=== PATIENT | male | born 1955 | race Caucasian/White ===

== ENCOUNTER → 2020-05-24 14:23 | Outpatient (BNVA) | payer MEDICARE, SELFPAY | PROVIDERS: Family Provider Internal Medicine; PCP Family Medicine; Visit Provider Nurse Practitioner Family | DX: Z20.828 Contact with and (suspected) exposure to other viral communicable diseases (principal) | CPT/HCPCS: 87635 ==

== ENCOUNTER 2020-05-28 16:33 | Emergency (ER) | payer MEDICARE, SELFPAY ==
[2020-05-28 16:44] VITALS: BP 172/89; PULSE 101; RESP 18; TEMP 38.3; O2SAT 93; BMI 26.9
--- NOTE | 2020-05-28 16:53 | XRR_ITS ---
PROCEDURE INFORMATION: Exam: XR Chest, 1 View Exam date and time: 05/28/2020 4:54 PM Age: 64 years old Clinical indication: Shortness of breath; Additional info: SOB TECHNIQUE: Imaging protocol: XR of the chest Views: 1 view. COMPARISON: DX [facility] [place] Chest 2 views 09/17/2017 10:16 AM FINDINGS: Lungs: No visible active interstitial or alveolar airspace disease. Evidence of antecedent granulomatous disease. Pleural space: Unremarkable. No pleural effusion. No pneumothorax. Heart/Mediastinum: Cardiac structures and configuration with arteriosclerosis. Bones/joints: Unremarkable. XR/XR chest 1V portable [id number] IMPRESSION: Nonacute.
[2020-05-28 17:14] VITALS: O2SAT 91
--- NOTE | 2020-05-28 17:21 | W.ED.COVID ---
HPI - COVID General: Chief Complaint: COVID symptoms Stated Complaint: covid +/trouble breathing Time Seen by Provider: 05/28/20 16:53 Source: patient Mode of arrival: ambulatory Limitations: no limitations Triage information: Has fever, cough or shortness of breath. Exposure to COVID + person last 14 days History of Present Illness: HPI Narrative: 64-year-old male who has had Covid for 1 week. He states that over last 2 days he has had some increasing shortness of breath and a cough. Patient's room air saturation here is 93%. He denies any chest pain. He is in no distress here. He has had no vomiting or diarrhea. He denies any worsening or improving factors. COVID 19 common symptoms: positive fever(s), non-productive cough and dyspnea; negative headache(s), throat pain, nausea, vomiting or diarrhea COVID 19 other sytmptoms: negative chest pain COVID Results: SARS-CoV-2 RNA (RT-PCR) Detected (NOT DETECTED) A 05/24/20 14:23 05/24/20 Review of Systems Const: Reports: fever(s) Eyes: Denies: blurry vision or eye discomfort ENMT: Denies: throat pain or dental pain Card: Denies: chest pain Resp: Reports: dyspnea and non-productive cough GI: Denies: abdominal pain, nausea, vomiting or diarrhea : Denies: dysuria Musc: Denies: neck pain or back pain Skin/Breast: Denies: rash Neuro: Denies: headache(s) Psych: Denies: depression Jn/Lymph: Denies: easy bruising All/Imm: Denies: urticaria Physical Exam Const: COMMON NORMALS: no acute distress, patient oriented x3 and healthy appearing HENMT: COMMON NORMALS: normocephalic and atraumatic HEAD & SCALP: normocephalic and atraumatic Eye: COMMON NORMALS: Equal, round and reactive pupils present and EOMs intact bilaterally PUPIL: Yes Equal, round and reactive pupils present Neck/C-Spine: COMMON NORMALS: full ROM and supple Chest: COMMONS NORMALS: normal inspection of the chest and normal palpation of entire chest wall Resp: COMMON NORMALS: normal respiratory effort, No retractions, No use of accessory muscles and clear to auscultation bilaterally AUSCULTATION: clear to auscultation bilaterally Cardio: COMMON NORMALS: regular rate, regular rhythm and No murmurs present (Cardio) RATE: regular rate RHYTHM: regular rhythm GI: COMMON NORMALS: Normal to inspection, nondistended, normoactive bowel sounds present, Soft to palpation, non-tender and no masses PALPATION: Yes Soft to palpation Extremity: COMMON NORMALS: normal to inspection and full ROM Neuro: COMMON NORMALS: patient oriented x3, moves all extremities and no focal motor deficits Psych: COMMON NORMALS: mental status grossly normal, Normal thought process present and cooperative THOUGHT PROCESS: Normal thought process present Skin: COMMON NORMALS: no rashes or lesions noted and no wounds GENERAL SKIN EXAM: no rashes or lesions noted Course Vital Signs: Vital signs: Vital Signs Temperature 100.9 F H 05/28/20 16:44 Pulse Rate 103 H 05/28/20 17:55 Respiratory Rate 18 05/28/20 17:53 Blood Pressure 172/89 05/28/20 16:44 Pulse Oximetry 93 05/28/20 18:10 MDM - COVID MDM Narrative: Medical decision making narrative: Clement presents here with COVID-19. Patient qualifies for [address] him on home oxygen 2 L. He is otherwise well-appearing here. He is stable for discharge and has no signs of embolism. He is to follow-up with primary care doctor in 3 to 4 days return if worsening. Lab Data: Labs: Lab Results 05/28/20 05/28/20 05/28/20 Range/Units 17:06 17:06 17:06 WBC 6.4 (4.0-10.0) 10^3/ uL RBC 4.92 (4.1-5.3) 10^6/u L Hgb 15.6 (11.7-16.6) g/dL Hct 46.6 (42.0-52.0) % MCV 94.7 H (80-94) fL MCH 31.7 (28.0-34.0) pg MCHC 33.5 (30.0-36.0) g/dL RDW 11.9 L (12.1-15.1) % Plt Count 153 (130-400) 10^3/c mm MPV 11.0 H (7.4-10.4) fL Neut % (Auto) 71.4 % Lymph % (Auto) 17.9 % [place] % (Auto) 9.6 % Eos % (Auto) 0.0 % Baso % (Auto) 0.3 % Neut # (Auto) 4.54 (1.8-7.7) 10^3/u L Lymph # (Auto) 1.1 (0.8-4.8) 10^3/u L [place] # (Auto) 0.6 (0.2-0.9) 10^3/u L Eos # (Auto) 0.0 (0.0-0.8) 10^3/u L Baso # (Auto) 0.0 (0.0-0.1) 10^3/u L Nucleated RBC % (a uto) 0 % Nucleated RBCs # 0.0 /100WBC Fibrinogen 626 H (174-498) mg/dL Specimen Type Sample Site ABG pH (7.35-7.45) ABG pCO2 (35-45) mmHg ABG pO2 (80.0-100.0) mmH g ABG HCO3 (22-26) mmol/L ABG Base Excess (-2.0-2.0) mmol/ L Tj Test Hematocrit (42-52) % O2 Delivery Device FiO2 % Tank Truck Driver ID Blood Gas Notified Time Sodium 133 L (136-145) mmol/L Potassium 4.0 (3.5-5.1) mmol/L Chloride 96 L (98-107) mmol/L Carbon Dioxide 27 (22-29) mmol/L Anion Gap 14.0 (5-19) BUN 17 (8-23) mg/dL Creatinine 0.9 (0.7-1.2) mg/dL GFR Calculation 84.7 L (90-130) mL/min Glucose 79 (65-115) mg/dL Calculated Osmolal ity 276 L (285-295) mOsm/k g Lactic Acid (0.5-2.2) mmol/L Calcium 9.1 (8.5-10.5) mg/dL Total Bilirubin 0.6 (0.15-1.2) mg/dL AST 60 H (0-40) U/L ALT 85 H (0-41) U/L Alkaline Phosphata se 92 (40-130) IU/L C-Reactive Protein 16.5 H (0.0-4.9) mg/L Total Protein 7.4 (6.6-8.7) g/dL Albumin 4.3 (3.5-5.2) g/dL Globulin 3.1 (1.3-4.6) g/dL 05/28/20 05/28/20 Range/Units 17:06 17:52 WBC (4.0-10.0) 10^3/ uL RBC (4.1-5.3) 10^6/u L Hgb (11.7-16.6) g/dL Hct (42.0-52.0) % MCV (80-94) fL MCH (28.0-34.0) pg MCHC (30.0-36.0) g/dL RDW (12.1-15.1) % Plt Count (130-400) 10^3/c mm MPV (7.4-10.4) fL Neut % (Auto) % Lymph % (Auto) % [place] % (Auto) % Eos % (Auto) % Baso % (Auto) % Neut # (Auto) (1.8-7.7) 10^3/u L Lymph # (Auto) (0.8-4.8) 10^3/u L [place] # (Auto) (0.2-0.9) 10^3/u L Eos # (Auto) (0.0-0.8) 10^3/u L Baso # (Auto) (0.0-0.1) 10^3/u L Nucleated RBC % (a uto) % Nucleated RBCs # /100WBC Fibrinogen (174-498) mg/dL Specimen Type Arterial Sample Site Radial, right ABG pH 7.47 H (7.35-7.45) ABG pCO2 31.3 L (35-45) mmHg ABG pO2 59.6 L (80.0-100.0) mmH g ABG HCO3 22.7 (22-26) mmol/L ABG Base Excess 0.0 (-2.0-2.0) mmol/ L Tj Test Pos Hematocrit 46.1 (42-52) % O2 Delivery Device Room air FiO2 21.0 % Tank Truck Driver ID Ed Blood Gas Notified Time 1815 Sodium (136-145) mmol/L Potassium (3.5-5.1) mmol/L Chloride (98-107) mmol/L Carbon Dioxide (22-29) mmol/L Anion Gap (5-19) BUN (8-23) mg/dL Creatinine (0.7-1.2) mg/dL GFR Calculation (90-130) mL/min Glucose (65-115) mg/dL Calculated Osmolal ity (285-295) mOsm/k g Lactic Acid 1.2 (0.5-2.2) mmol/L Calcium (8.5-10.5) mg/dL Total Bilirubin (0.15-1.2) mg/dL AST (0-40) U/L ALT (0-41) U/L Alkaline Phosphata se (40-130) IU/L C-Reactive Protein (0.0-4.9) mg/L Total Protein (6.6-8.7) g/dL Albumin (3.5-5.2) g/dL Globulin (1.3-4.6) g/dL Imaging Data: CXR: Radiologist's impression: [address] [address] XRay Report Signed Patient: Clement Foley Unit #: [id number] : 1955 Age/Sex: 64 / M ADM Date: 05/28/20 Loc: ER Room/Bed: Attending Dr: Ordering Provider/Ordering MD: Rancho Keller MD Date of Service: 05/28/20 Procedure(s): XR chest 1V portable [id number] Accession Number(s): [id number] Report Number: [id number] PROCEDURE INFORMATION: Exam: XR Chest, 1 View Exam date and time: 05/28/2020 4:54 PM Age: 64 years old Clinical indication: Shortness of breath; Additional info: SOB TECHNIQUE: Imaging protocol: XR of the chest Views: 1 view. COMPARISON: [place] [facility] [place] 2 [place] 09/17/2017 10:16 AM FINDINGS: Lungs: No visible active interstitial or alveolar airspace disease. Evidence of antecedent granulomatous disease. Pleural space: Unremarkable. No pleural effusion. No pneumothorax. Heart/Mediastinum: Cardiac structures and configuration with arteriosclerosis. Bones/joints: Unremarkable. XR/XR chest 1V portable [id number] IMPRESSION: Nonacute. COVID Results: SARS-CoV-2 RNA (RT-PCR) Detected (NOT DETECTED) A 05/24/20 14:23 05/24/20 Discharge Plan Discharge Patient Disposition: Home Clinical Impression: COVID-19 Condition: Stable Prescriptions: No Action prednisone 20 mg tablet 40 mg PO DAILY 5 Days Qty: 10 RF: 0 Discharge Orders: Discharge ED (Routine); Ordered 05/28/20 Ordered By: Rancho Keller Other Ambulatory Orders: DME: Oxygen (Order) Location: None Selected Ordered By: Rancho Keller Referrals: Juancarlos Samaniego MD [Primary Care Provider] - 1-3 days Discharge Diet: Advance as tolerated Discharge Activity: Resume usual activity Patient Instructions: Upper Respiratory Infection (ED) Coding Level of Care Code ED Special Services Supervisor for Nathaly Fwd Exam Comprehensive
[2020-05-28 17:26] LABS: Basophils % 0.3 %; Hematocrit 46.6 % (42.0-52.0); Hemoglobin 15.6 g/dL (11.7-16.6); Lymphocytes # 1.1 10^3/uL (0.8-4.8); Lymphocytes % 17.9 %; Mean Corpuscular HGB Conc 33.5 g/dL (30.0-36.0); Mean Corpuscular Hemoglobin 31.7 pg (28.0-34.0); Mean Corpuscular Volume 94.7 fL (80-94); Monocytes # 0.6 10^3/uL (0.2-0.9); Monocytes % 9.6 %; Neutrophils # 4.54 10^3/uL (1.8-7.7); Neutrophils % 71.4 %; Nucleated Red Blood Cells % 0 %; Platelet Count 153 10^3/cmm (130-400); Red Blood Count 4.92 10^6/uL (4.1-5.3); Red Cell Distribution Width 11.9 % (12.1-15.1); White Blood Count 6.4 10^3/uL (4.0-10.0)
[2020-05-28 17:42] LABS: Fibrinogen 626 mg/dL (174-498)
[2020-05-28] MEDS: acetaminophen 325 mg Tablet 650 MG PO (17:42)
[2020-05-28] MEDS: dexamethasone 4 mg/mL INJ 10 MG IVP (17:42)
[2020-05-28] MEDS: sodium chloride 0.9% 1,000 ML 999 ML IV (17:43)
[2020-05-28 17:45] LABS: Lactic Sepsis W/Reflex 1.2 mmol/L (0.5-2.2)
[2020-05-28 17:46] LABS: Alanine Aminotransferase 85 U/L (0-41); Albumin Level 4.3 g/dL (3.5-5.2); Alkaline Phosphatase 92 IU/L (40-130); Aspartate Amino Transferase 60 U/L (0-40); Blood Urea Nitrogen 17 mg/dL (8-23); C Reactive Protein 16.5 mg/L (0.0-4.9); Calcium 9.1 mg/dL (8.5-10.5); Carbon Dioxide 27 mmol/L (22-29); Chloride 96 mmol/L (98-107); Globulin 3.1 g/dL (1.3-4.6); Glomerular Filtration Rate 84.7 mL/min (90-130); Glucose 79 mg/dL (65-115); Osmolality Calculated 276 mOsm/kg (285-295); Sodium 133 mmol/L (136-145); Total Bilirubin 0.6 mg/dL (0.15-1.2); Total Protein 7.4 g/dL (6.6-8.7)
[2020-05-28] MEDS: albuterol 8 gm MDI 2 PUFF INHALATION (17:52)
[2020-05-28 17:53] VITALS: PULSE 110; RESP 18; O2SAT 93
[2020-05-28 17:55] VITALS: PULSE 103
[2020-05-28 18:02] LABS: ABG PCO2 31.3 mmHg (35-45); Arterial Blood Gas Hematocrit 46.1 % (42-52); Blood Gas Allen Test Pos; Blood Gas Sample Type Arterial; PO2 ABG 59.6 mmHg (80.0-100.0)
[2020-05-28 18:03] LABS: ABG PH Result 7.47 (7.35-7.45); Blood Gas Operator Identificat ED; Blood Gas Sample Site Radial, right; HCO3 ABG 22.7 mmol/L (22-26); Oxygen Device ROOM AIR
[2020-05-28 18:10] VITALS: O2SAT 88; O2SAT 93; O2SAT 94
[2020-05-28 18:44] LABS: Blood Gas CCRB Time 1815
[2020-05-28 20:08] VITALS: PULSE 96; RESP 24; O2SAT 93
== END 2020-05-28 20:09 | disposition home or self-care (01) ==
PROVIDERS: Emergency Provider Emergency Medicine; PCP Family Medicine
DX: U07.1 COVID-19 (principal)
CPT/HCPCS: 12345; 36600; 71045; 80053; 82803; 83605; 85025; 85384; 86140; 94640; 96361; 96374; 96375; 99282; 99284; J1100; J3535; J7030

== ENCOUNTER 2021-07-31 10:45 | Emergency (ER) | payer MEDICARE, SELFPAY ==
[2021-07-31 11:18] VITALS: BP 163/95; RESP 22; TEMP 36.7; O2SAT 95; BMI 27.5
--- NOTE | 2021-07-31 11:18 | XR_ITS ---
WS: [id number] CHEST XRAY TECHNIQUE: Portable chest. CLINICAL INFORMATION: cough, congestion COMPARISON: November 21, 2020 FINDINGS: Heart: Normal cardiac silhouette. Lungs: Mild chronic emphysematous changes. No acute pulmonary infiltrates. A few calcified granulomas . Bones: Normal visualized bony structures. XR/XR chest 1V portable [id number] IMPRESSION: No acute chest findings
[2021-07-31 12:09] LABS: Basophils # 0.1 10^3/uL (0.0-0.1); Basophils % 0.8 %; Eosinophils # 0.6 10^3/uL (0.0-0.8); Eosinophils % 6.4 %; Hematocrit 44.1 % (42.0-52.0); Hemoglobin 14.7 g/dL (11.7-16.6); Lymphocytes % 21.3 %; Mean Corpuscular HGB Conc 33.3 g/dL (30.0-36.0); Mean Corpuscular Hemoglobin 31.8 pg (28.0-34.0); Mean Corpuscular Volume 95.5 fl (80-94); Mean Platelet Volume 10.1 fL (7.4-10.4); Monocytes # 0.8 10^3/uL (0.2-0.9); Monocytes % 7.9 %; Neutrophils # 5.94 10^3/uL (1.8-7.7); Neutrophils % 62.2 %; Nucleated Red Blood Cells % 0 %; Platelet Count 198 10^3/cmm (130-400); Red Blood Count 4.62 10^6/uL (4.1-5.3); Red Cell Distribution Width 11.9 % (12.1-15.1); White Blood Count 9.6 10^3/uL (4.0-10.0)
[2021-07-31 12:54] LABS: NT Pro B Type Natriuretic Pept 19 pg/mL (0-125); Procalcitonin 0.05 ng/mL (0-0.5)
[2021-07-31 13:04] LABS: Alanine Aminotransferase 31 U/L (0-41); Albumin Level 4.2 g/dL (3.5-5.2); Alkaline Phosphatase 108 IU/L (40-130); Anion Gap 14.3 (5-19); Aspartate Amino Transferase 31 U/L (0-40); Blood Urea Nitrogen 10 mg/dL (8-23); Calcium 8.9 mg/dL (8.5-10.5); Carbon Dioxide 27 mmol/L (22-29); Chloride 101 mmol/L (98-107); Globulin 3.3 g/dL (1.3-4.6); Glomerular Filtration Rate 84.4 mL/min (90-130); Glucose 93 mg/dL (65-115); Osmolality Calculated 285 mOsm/kg (285-295); Potassium 4.3 mmol/L (3.5-5.1); Sodium 138 mmol/L (136-145); Total Bilirubin 0.3 mg/dL (0.15-1.2); Total Protein 7.5 g/dL (6.6-8.7)
[2021-07-31 14:09] LABS: SARS Covid-2 Antigen Negative (Negative)
--- NOTE | 2021-07-31 14:25 | W.ED.GENADLT ---
HPI - General Adult General: Chief complaint: COVID symptoms Stated complaint: Cough, congestion, Sob Time Seen by Provider: 07/31/21 13:58 History of Present Illness: Patient is a 65-year-old male presents emergency room with complaints of cough x1 month. Patient tells me that over the last month, his cough has progressively gotten worse now he is making productive green phlegm. Patient denies any fever/chills, shortness of breath, chest pain, nausea/vomiting, diarrhea, melena or hematochezia. Has no complaints abdominal pain. Patient has a history of fear describes bouts of cough and shortness of breath with cough. Denies hemoptysis, recent travel, recent immobilization, leg swelling, or urinary complaints today Onset:30 days ago Duration:30 days Location:home Severity:mild Associated symptoms: Deny chest pain, dyspnea, nausea, rash, palpitations or vomiting Review of Systems Const: Denies: fever(s) or chills Eyes: Denies: change in vision ENMT: Denies: mouth pain Card: Denies: chest pain or palpitations Resp: Reports: productive cough; Denies: dyspnea GI: Denies: abdominal pain, nausea, vomiting or diarrhea : Denies: dysuria Musc: Denies: extremity pain Skin/Breast: Denies: rash or new lesions Neuro: Denies: weakness in extremities Psych: Reports: other (Normal mood) Jn/Lymph: Denies: easy bruising PFS ED PFSH: Medical History (Updated 07/31/21 @ 15:48 by Dayana Maher MD) COVID-19 Social History (Updated 07/06/21 @ 10:59 by Elsie Alas LPN) Smoking and tobacco status: former smoker Alcohol intake: current Alcohol intake frequency: 3 or more drinks per day Physical Exam Const: COMMON NORMALS: alert HENMT: COMMON NORMALS: atraumatic HEAD & SCALP: atraumatic MOUTH: moist mucous membranes not abnormal Eye: COMMON NORMALS: EOMs intact bilaterally and conjunctivae normal CONJUNCTIVA: Yes conjunctivae normal Neck/C-Spine: COMMON NORMALS: full ROM and supple Resp: COMMON NORMALS: normal respiratory effort and clear to auscultation bilaterally AUSCULTATION: clear to auscultation bilaterally Cardio: COMMON NORMALS: regular rate RATE: regular rate GI: COMMON NORMALS: Soft to palpation and non-tender PALPATION: Yes Soft to palpation Extremity: COMMON NORMALS: full ROM Neuro: SENSORIUM/ORIENTATION: Yes alert MOTOR EXAM: No Abnormal motor strength present and Other motor observations present (no focal motor deficits) Psych: COMMON NORMALS: speech normal SPEECH: Yes normal speech MOOD & AFFECT: Yes euthymic mood Course Vital Signs: Vital signs: Vital Signs Temperature 98.0 F 07/31/21 11:18 Pulse Rate 88 07/31/21 15:07 Respiratory Rate 16 07/31/21 15:07 Blood Pressure 132/92 07/31/21 15:07 Pulse Oximetry 95 07/31/21 15:07 MDM - General Adult Medical Decision Making 65-year-old male with history of 1 month of cough presenting to emergency room for evaluation of productive cough. On exam, patient has clear lung sounds. No signs of desaturation in the emergency room. XR appears to be clear. No white count. Patient is afebrile, do not suspect this is pneumonia. No suspicion the patient has ACS, CHF, PTX, PE, aortic dissection given presentation of symptoms not consistent with these differential diagnosis. Dimer appears to be elevated from triage. CTA negative for any signs of PE. Rx: Albuterol inhaler PRN dyspnea, tylenol 500mg Q6hrs I have given patient follow up with our continuous pillowcase cutter to be seen by our outpatient PCP for management of cough. Patient aware of a call from our continuous pillowcase cutter to schedule for appointment(s) and verbalizes understanding of the importance of following up. Patient requests to be seen by a credentialing assistant for the appointment. I have notified our continuous pillowcase cutter to get patient scheduled with Dr. Martinez for evaluation of reactive airway disease. Disposition: Discharge. Patient counseled regarding diagnostic impression, treatment plan. Patient given ED strict return precautions to return for continuation, worsening, or development of new symptoms. Instructed to f/u w/ PCP regarding symptoms today. Patient verbalized understanding. Lab Data : 07/31/21 11:55 07/31/21 11:55 Radiology Impressions Chest X-Ray 07/31/21 11:18 IMPRESSION: No acute chest findings Chest CTA 07/31/21 14:42 IMPRESSION: 1. Proximal main pulmonary arteries are normal. No evidence for pulmonary embolus. 2. Mild chronic emphysematous changes. No acute pulmonary infiltrates. No focal pneumonia or pleural fluid. 3. Calcified granulomatous disease. 4. No other significant findings. Laboratory Results WBC 9.6 10^3/uL (4.0-10.0) 07/31/21 11:55 RBC 4.62 10^6/uL (4.1-5.3) 07/31/21 11:55 Hgb 14.7 g/dL (11.7-16.6) 07/31/21 11:55 Hct 44.1 % (42.0-52.0) 07/31/21 11:55 MCV 95.5 fl (80-94) H 07/31/21 11:55 MCH 31.8 pg (28.0-34.0) 07/31/21 11:55 MCHC 33.3 g/dL (30.0-36.0) 07/31/21 11:55 RDW 11.9 % (12.1-15.1) L 07/31/21 11:55 Plt Count 198 10^3/cmm (130-400) 07/31/21 11:55 MPV 10.1 fL (7.4-10.4) 07/31/21 11:55 Neut % (Auto) 62.2 % 07/31/21 11:55 Lymph % (Auto) 21.3 % 07/31/21 11:55 [place] % (Auto) 7.9 % 07/31/21 11:55 Eos % (Auto) 6.4 % 07/31/21 11:55 Baso % (Auto) 0.8 % 07/31/21 11:55 Neut # (Auto) 5.94 10^3/uL (1.8-7.7) 07/31/21 11:55 Lymph # (Auto) 2.0 10^3/uL (0.8-4.8) 07/31/21 11:55 [place] # (Auto) 0.8 10^3/uL (0.2-0.9) 07/31/21 11:55 Eos # (Auto) 0.6 10^3/uL (0.0-0.8) 07/31/21 11:55 Baso # (Auto) 0.1 10^3/uL (0.0-0.1) 07/31/21 11:55 Nucleated RBC % (auto) 0 % 07/31/21 11:55 Nucleated RBCs # 0.0 /100WBC 07/31/21 11:55 D-Dimer 0.89 ug/mIFEU (0-0.59) H 07/31/21 14:14 Sodium 138 mmol/L (136-145) 07/31/21 11:55 Potassium 4.3 mmol/L (3.5-5.1) 07/31/21 11:55 Chloride 101 mmol/L (98-107) 07/31/21 11:55 Carbon Dioxide 27 mmol/L (22-29) 07/31/21 11:55 Anion Gap 14.3 (5-19) 07/31/21 11:55 BUN 10 mg/dL (8-23) 07/31/21 11:55 Creatinine 0.9 mg/dL (0.7-1.2) 07/31/21 11:55 GFR Calculation 84.4 mL/min (90-130) L 07/31/21 11:55 Glucose 93 mg/dL (65-115) 07/31/21 11:55 Calculated Osmolality 285 mOsm/kg (285-295) 07/31/21 11:55 Calcium 8.9 mg/dL (8.5-10.5) 07/31/21 11:55 Total Bilirubin 0.3 mg/dL (0.15-1.2) 07/31/21 11:55 AST 31 U/L (0-40) 07/31/21 11:55 ALT 31 U/L (0-41) 07/31/21 11:55 Alkaline Phosphatase 108 IU/L (40-130) 07/31/21 11:55 NT-Pro-B Natriuret Pep 19 pg/mL (0-125) 07/31/21 11:55 Total Protein 7.5 g/dL (6.6-8.7) 07/31/21 11:55 Albumin 4.2 g/dL (3.5-5.2) 07/31/21 11:55 Globulin 3.3 g/dL (1.3-4.6) 07/31/21 11:55 Procalcitonin 0.05 ng/mL (0-0.5) 07/31/21 11:55 SARS-CoV-2 RNA (RT-PCR) Cancelled 07/31/21 11:58 SARS-CoV-2 Ag (Rapid) Negative (Negative) 07/31/21 14:08 Imaging Data Other Imaging: Radiologist's impression: [address] [place] [id number] CT Scan Report Signed Patient: Clement Foley Unit #: [id number] : 1955 Age/Sex: 65 / M ADM Date: 07/31/21 Loc: ER Room/Bed: Attending Dr: Ordering Provider/Ordering MD: Dayana Maher MD Date of Service: 07/31/21 Procedure(s): CT angio chest PE protcl [id number] Accession Number(s): [id number] Report Number: [id number] WS: [id number] CTA OF THE CHEST WITH PULMONARY EMBOLISM PROTOCOL TECHNIQUE: High-resolution contrast enhanced CTA of the chest with coronal and sagittal reformatted images with pulmonary embolism protocol. MIP images are also reviewed. CLINICAL INFORMATION: eval for pe COMPARISON: None. DLP: 549.[address] scans at [facility] use at least one of these dose optimization techniques: automated exposure control; mA and/or kV adjustment per patient size (includes targeted exams where dose is matched to clinical indication); or iterative reconstruction. FINDINGS: Proximal main pulmonary arteries are normal. Normal segmental and subsegmental pulmonary arteries. No evidence for pulmonary embolus. Moderate chronic emphysematous changes. No acute pulmonary infiltrates. Normal caliber thoracic aorta. Calcified anterior mediastinal and hilar lymph nodes. No axillary lymphadenopathy. Normal GE junction. Adrenal glands are normal. Splenic granulomas. CT/CT angio chest PE protcl [id number] IMPRESSION: ? 1.? Proximal main pulmonary arteries are normal. No evidence for pulmonary embolus. 2.? Mild chronic emphysematous changes. No acute pulmonary infiltrates. No focal pneumonia or pleural fluid. 3.? Calcified granulomatous disease. 4.? No other significant findings. ? Dictated By: Lucien Paul MD Signed By: Lucien Paul MD Signed Date/Time: 07/31/21 1540 DD/ 1535 [facility] [address] [place] [address] XRay Report Signed Patient: Clement Foley Unit #: [id number] : 1955 [facility]#:[id number] Age/Sex: 65 / M ADM Date: 07/31/21 Loc: ER Room/Bed: Attending Dr: Ordering Provider/Ordering MD: Tonya Munoz Date of Service: 07/31/21 Procedure(s): XR chest 1V portable [id number] Accession Number(s): [id number] Report Number: [id number] WS: [id number] CHEST XRAY TECHNIQUE: Portable chest. CLINICAL INFORMATION: cough, congestion COMPARISON: November 21, 2020 FINDINGS: Heart: Normal cardiac silhouette. Lungs: Mild chronic emphysematous changes. No acute pulmonary infiltrates. A few calcified granulomas. Bones: Normal visualized bony structures. XR/XR chest 1V portable [id number] IMPRESSION: ? No acute chest findings ? Dictated By: Lucien Paul MD Signed By: Lucien Paul MD Signed Date/Time: 07/31/211147 DD/ 114 Discharge Plan Discharge Patient Disposition: Home Clinical Impression: Cough Condition: Stable Prescriptions: New acetaminophen 500 mg tablet 500 mg PO Q6H PRN (Reason: pain) 5 Days Qty: 20 0RF albuterol sulfate 90 mcg/actuation HFA aerosol inhaler 2 inh inhalation Q4H PRN (Reason: shortness of breath or wheezing) 5 Days Qty: 6.7 0RF No Action azithromycin 250 mg tablet See Rx Instructions PO .COMPLEX 0RF Rx Instructions: take 500 mg today (day 1), then 250 mg for 4 days (days 2-5) PO promethazine-DM 6.25-15 mg/5 mL syrup 5 ml PO Q6H 0RF albuterol sulfate 90 mcg/actuation HFA aerosol inhaler 2 inh inhalation Q6H PRN0RF dexamethasone 6 mg tablet 6 mg PO DAILY Qty: 10 0RF benzonatate 200 mg capsule 200 mg PO TID PRN (Reason: cough) Qty: 30 0RF Discharge Orders: Discharge ED (Routine); Ordered 07/31/21 Ordered By: Dayana Maher Referrals: Rocky Savage DO [Primary Care Provider] - Discharge Diet: Advance as tolerated Discharge Activity: Increase activity as tolerated Patient Instructions: Acute Cough (ED) Activity Restrictions/Additional Instructions: Here are the other suggestions for cough: Take mucinex as needed Drink green tea Stay hydrated Use a cough drop Have some honey (every few hours) Use a humidifier Elevate your bed when you sleep Apply menthol scented balm to your nose to decongest Come back to the emergency room if your symptoms worsen, have any shortness of breath, fever/chills, dehydration, inability tolerate food or drinks, any difficulty breathing, or any new or concerning complaints. Coding Level of Care Code ED Administrative Office Assistant for Migelg Fwd Exam Comprehensive
[2021-07-31 14:33] LABS: D Dimer 0.89 ug/mIFEU (0-0.59)
--- NOTE | 2021-07-31 14:42 | CT_ITS ---
WS: [email or web address] CTA OF THE CHEST WITH PULMONARY EMBOLISM PROTOCOL TECHNIQUE: High-resolution contrast enhanced CTA of the chest with coronal and sagittal reformatted i [place] with pulmonary embolism protocol. MIP images are also reviewed. CLINICAL INFORMATION: eval for pe COMPARISON: None. DLP: 549.[address] scans at [facility] use at least one of these dose optimization techniques: automated e xposure control; mA and/or kV adjustment per patient size (includes targeted exams where dose is matc hed to clinical indication); or iterative reconstruction. FINDINGS: Proximal main pulmonary arteries are normal. Normal segmental and subsegmental pulmonary arteries. No evidence for pulmonary embolus. Moderate chronic emphysematous changes. No acute pulmonary infiltrat es. Normal caliber thoracic aorta. Calcified anterior mediastinal and hilar lymph nodes. No axillary lymp hadenopathy. Normal GE junction. Adrenal glands are normal. Splenic granulomas. CT/CT angio chest PE protcl [id number] IMPRESSION: 1. Proximal main pulmonary arteries are normal. No evidence for pulmonary embo abdifatah. 2. Mild chronic emphysematous changes. No acute pulmonary infiltrates. No foca l pneumonia or pleural fluid. 3. Calcified granulomatous disease. 4. No other significant findings.
[2021-07-31 14:43] VITALS: BP 132/92; RESP 16; O2SAT 92
[2021-07-31 15:07] VITALS: BP 132/92; PULSE 88; RESP 16; O2SAT 95
[2021-07-31] MEDS: iohexol 350 mg/mL 100 mL Btl IV (15:17)
--- NOTE | 2021-08-02 12:30 | DCPLANNER ---
Addendum entered by Jaky Curry 09/22/21 08:20: Patient had a follow up appointment scheduled for 08.23.[address] [facility] - patient did attend appointment. Original Note: community development manager had message to schedule a follow up appointment for patient with [facility]. community development manager called [facility], spoke with Melly, gave clinic patients information. A follow up appointment was scheduled for Monday, August 23, 2021 at 9:[address] Martinez. community development manager called patients , and gave him the appointment information.
== END 2021-07-31 16:37 | disposition home or self-care (01) ==
PROVIDERS: Physician Assistant; Emergency Provider Emergency Medicine; PCP Internal Medicine
DX: R05.9 Cough, unspecified (principal); Z87.891 Personal history of nicotine dependence; Z20.822 Contact with and (suspected) exposure to COVID-19
CPT/HCPCS: 36415; 71045; 71275; 80053; 83880; 84145; 85025; 85378; 87426; 99283; Q9967

== ENCOUNTER → 2021-08-16 09:45 | Outpatient (BNVA) | payer MEDICARE, SELFPAY | PROVIDERS: PCP Internal Medicine; Visit Provider Internal Medicine Critical Care Medicine | DX: J44.9 Chronic obstructive pulmonary disease, unspecified (principal); Z87.891 Personal history of nicotine dependence; Z86.16 Personal history of COVID-19 | CPT/HCPCS: 99214 ==

== ENCOUNTER 2021-10-05 08:46 | Outpatient (CLI) | payer MEDICARE, SELFPAY ==
--- NOTE | 2021-10-05 12:47 | PFTS_ITS ---
Date of Study:10/05/21 Date of Dictation: MECHANICS: Forced vital capacity (FVC) is normal. Forced expiratory volume in one second (FEV1) is normal. FEV1/FVC is normal. FLOW VOLUME LOOP: Mild scooping at lower lung volumes. LUNG VOLUMES: Total lung capacity (TLC) is normal. Residual volume (RV) is reduced. DIFFUSING CAPACITY FOR CARBON MONOXIDE: Mild reduced. INTERPRETATION: The postbronchodilator spirometry is normal. There is no significant postbronchodilator response. The total lung capacity is normal. There is nonspecific reduction in residual volume. Gas exchange (DLCO) is mildly reduced. MTDD
== END 2021-10-05 08:47 | disposition home or self-care (01) ==
PROVIDERS: PCP Internal Medicine; Visit Provider Internal Medicine Critical Care Medicine
DX: J43.9 Emphysema, unspecified (principal); F17.210 Nicotine dependence, cigarettes, uncomplicated
CPT/HCPCS: 94060; 94726; J7611

== ENCOUNTER → 2021-11-17 11:03 | Outpatient (BNVA) | payer MEDICARE, SELFPAY | PROVIDERS: PCP Internal Medicine; Visit Provider Internal Medicine Critical Care Medicine | DX: R05.9 Cough, unspecified (principal); J43.9 Emphysema, unspecified; Z87.891 Personal history of nicotine dependence; Z86.16 Personal history of COVID-19; J45.909 Unspecified asthma, uncomplicated; R06.02 Shortness of breath | CPT/HCPCS: 82785; 86003; 99214 ==

== ENCOUNTER → 2021-12-29 10:10 | Outpatient (BNVA) | payer MEDICARE, SELFPAY | PROVIDERS: PCP Internal Medicine; Visit Provider Internal Medicine Critical Care Medicine | DX: J45.40 Moderate persistent asthma, uncomplicated (principal); R05.9 Cough, unspecified; J43.9 Emphysema, unspecified; Z87.891 Personal history of nicotine dependence; I10 Essential (primary) hypertension | CPT/HCPCS: 99214 ==

== ENCOUNTER → 2022-06-14 11:08 | Outpatient (BNVA) | payer MEDICARE, SELFPAY | PROVIDERS: PCP Internal Medicine; Visit Provider Nurse Practitioner | DX: M10.9 Gout, unspecified (principal) | CPT/HCPCS: 73562; 73630 ==

== ENCOUNTER → 2022-06-28 13:06 | Outpatient (BNVA) | payer MEDICARE, SELFPAY | PROVIDERS: PCP Internal Medicine; Visit Provider Student in an Organized Health Care Education/Training Program | DX: M25.562 Pain in left knee (principal); M71.162 Other infective bursitis, left knee | CPT/HCPCS: 73560; 73565; 99204 ==

== ENCOUNTER → 2022-07-02 13:13 | Outpatient (BNVA) | payer MEDICARE, SELFPAY | PROVIDERS: PCP Internal Medicine; Visit Provider Internal Medicine Pulmonary Disease | DX: J45.40 Moderate persistent asthma, uncomplicated (principal); J43.9 Emphysema, unspecified; K21.9 Gastro-esophageal reflux disease without esophagitis; Z87.891 Personal history of nicotine dependence | CPT/HCPCS: 99214 ==

== ENCOUNTER → 2022-07-16 08:47 | Outpatient (BNVA) | payer MEDICARE, SELFPAY | PROVIDERS: PCP Internal Medicine; Visit Provider Student in an Organized Health Care Education/Training Program | DX: M71.162 Other infective bursitis, left knee (principal) | CPT/HCPCS: 99213 ==

== ENCOUNTER → 2022-12-31 14:20 | Outpatient (BNVA) | payer MEDICARE, SELFPAY | PROVIDERS: PCP Internal Medicine; Visit Provider Internal Medicine Pulmonary Disease | DX: J45.40 Moderate persistent asthma, uncomplicated (principal); R05.9 Cough, unspecified; J43.9 Emphysema, unspecified; K21.9 Gastro-esophageal reflux disease without esophagitis; Z87.891 Personal history of nicotine dependence | CPT/HCPCS: 99214 ==

== ENCOUNTER → 2023-06-18 13:10 | Outpatient (BNVA) | payer MEDICARE, SELFPAY | PROVIDERS: PCP Internal Medicine; Visit Provider Nurse Practitioner Family | DX: R50.9 Fever, unspecified (principal); J06.9 Acute upper respiratory infection, unspecified | CPT/HCPCS: 87400 ==

== ENCOUNTER → 2023-09-26 14:10 | Outpatient (BNVA) | payer MEDICARE, SELFPAY | PROVIDERS: PCP Internal Medicine; Visit Provider Internal Medicine Pulmonary Disease | DX: J45.40 Moderate persistent asthma, uncomplicated (principal); R05.9 Cough, unspecified; J43.9 Emphysema, unspecified; K21.9 Gastro-esophageal reflux disease without esophagitis; Z87.891 Personal history of nicotine dependence | CPT/HCPCS: 99214 ==

== ENCOUNTER → 2025-04-01 09:00 | Outpatient (BNVA) | payer MEDICARE, SELFPAY | PROVIDERS: PCP Family Medicine; Visit Provider Family Medicine | DX: E55.9 Vitamin D deficiency, unspecified (principal); Z00.00 Encounter for general adult medical examination without abnormal findings; Z12.5 Encounter for screening for malignant neoplasm of prostate; J45.40 Moderate persistent asthma, uncomplicated; I10 Essential (primary) hypertension; R79.89 Other specified abnormal findings of blood chemistry | CPT/HCPCS: 80053; 80061; 82306; 82607; 84443; 85025; G0103 ==